=== PATIENT | male | born 1985 | race Caucasian/White ===

== ENCOUNTER 2023-11-01 13:57 | Emergency (ER) | payer SELFPAY ==
[~2023-11-01] VITALS: Ht 172.7 cm; Wt 81.0 kg
[2023-11-01 14:01] VITALS: TEMP 98.2; O2SAT 98
[2023-11-01] MEDS: TETANUS, DIPHTHERIA, PERTUSSIS VAC/PF 0.5ML (>10YR OLD) IM ONE (15:39)
[2023-11-01 15:43] VITALS: BP 137/71; PULSE 88; RESP 18
[2023-11-01] MEDS: IBUPROFEN 600MG TABLET PO ONE (15:43)
== END 2023-11-01 16:20 | disposition home or self-care (01) ==
LOC: ER 13:57
DX: S80.811A Abrasion, right lower leg, initial encounter (principal); M25.522 Pain in left elbow; E11.9 Type 2 diabetes mellitus without complications; V49.59XA Passenger injured in collision with other motor vehicles in traffic accident, initial encounter; Y93.89 Activity, other specified; Y92.89 Other specified places as the place of occurrence of the external cause; Y99.8 Other external cause status
CPT/HCPCS: 73080; 90471; 90715; 99283